=== PATIENT | male | born 1950 | race Caucasian/White ===

== ENCOUNTER → 2019-12-25 | Outpatient (CLI) | payer OTHER | END | disposition home or self-care (01) | LOC: RAH 10:27 | PROVIDERS: ATTEND Family Medicine | DX: I70.213 Atherosclerosis of native arteries of extremities with intermittent claudication, bilateral legs (principal) | CPT/HCPCS: 93925 ==

== ENCOUNTER → 2020-02-15 | Outpatient (CLI) | payer OTHER | END | disposition home or self-care (01) | LOC: SHCH 15:03 | PROVIDERS: ATTEND Internal Medicine Cardiovascular Disease | DX: I51.89 Other ill-defined heart diseases (principal) | CPT/HCPCS: 93306; 93356 ==

== ENCOUNTER → 2020-02-16 | Outpatient (CLI) | payer OTHER ==
[~2020-02-16] MED LIST: REGADENOSON 0.4 MG/5 ML PF SYG IVP SCH
== END | disposition home or self-care (01) ==
LOC: SHCH 08:20
PROVIDERS: ATTEND Internal Medicine Cardiovascular Disease
DX: I20.9 Angina pectoris, unspecified (principal)
CPT/HCPCS: 78452; 93017; 96374; A9500 ×2; J2785

== ENCOUNTER → 2020-06-01 | Outpatient (CLI) | payer OTHER | END | disposition home or self-care (01) | LOC: RAH 13:49 | PROVIDERS: ATTEND Family Medicine | DX: R10.31 Right lower quadrant pain (principal); N18.32 Chronic kidney disease, stage 3b; R59.0 Localized enlarged lymph nodes | CPT/HCPCS: 76770; 76882 ==

== ENCOUNTER → 2020-08-19 | Outpatient (CLI) | payer OTHER | END | disposition home or self-care (01) | LOC: RAH 10:00 | PROVIDERS: ATTEND Internal Medicine Cardiovascular Disease | DX: I26.99 Other pulmonary embolism without acute cor pulmonale (principal); Z95.1 Presence of aortocoronary bypass graft | CPT/HCPCS: 71046; 78582; A9540; A9558 ==

== ENCOUNTER → 2020-10-07 | Outpatient (CLI) | payer OTHER | END | disposition home or self-care (01) | LOC: SHCH 16:21 | PROVIDERS: ATTEND Internal Medicine Cardiovascular Disease | DX: I07.1 Rheumatic tricuspid insufficiency (principal) | CPT/HCPCS: 93306 ==

== ENCOUNTER → 2022-07-10 | Outpatient (CLI) | payer OTHER | END | disposition home or self-care (01) | LOC: SHCH 08:24 | PROVIDERS: ATTEND Internal Medicine Cardiovascular Disease | DX: I87.2 Venous insufficiency (chronic) (peripheral) (principal); R60.0 Localized edema | CPT/HCPCS: 93970 ==

== ENCOUNTER → 2022-07-16 | Outpatient (CLI) | payer OTHER | END | disposition home or self-care (01) | LOC: RESP 08:42 | PROVIDERS: ATTEND Internal Medicine Cardiovascular Disease | DX: R06.02 Shortness of breath (principal); R06.09 Other forms of dyspnea; Z86.16 Personal history of COVID-19 | CPT/HCPCS: 94010 ==

== ENCOUNTER → 2022-09-28 | Outpatient (CLI) | payer OTHER | END | disposition home or self-care (01) | LOC: RAH 11:04 | PROVIDERS: ATTEND Family Medicine | DX: I12.9 Hypertensive chronic kidney disease with stage 1 through stage 4 chronic kidney disease, or unspecified chronic kidney disease (principal); N18.4 Chronic kidney disease, stage 4 (severe); I70.0 Atherosclerosis of aorta; M47.815 Spondylosis without myelopathy or radiculopathy, thoracolumbar region | CPT/HCPCS: 71046 ==

== ENCOUNTER 2022-10-17 06:49 | Day surgery (SDC) | payer OTHER ==
[2022-10-11 11:23] LABS: BASOPHILS % (AUTO) 0.3 % (0.0-5.0); EOSINOPHILS % (AUTO) 1.9 % (0.0-8.0); HEMATOCRIT 36.2 % (42-54); LYMPHOCYTES % (AUTO) 32.7 % (21.0-51.0); MEAN CORPUSCULAR HEMOGLOBIN 32.3 pg (27.0-33.0); MONOCYTES % (AUTO) 9.4 % (3.0-13.0); NEUTROPHILS % (AUTO) 55.1 % (40.0-77.0); PLATELET COUNT (AUTO) 128 K/uL (130-400); RED BLOOD CELL COUNT(AUTO) 3.81 MIL/uL (4.50-6.20); RED CELL DISTRIBUTION WIDTH 13.9 % (11.0-15.5); WHITE BLOOD COUNT (AUTO) 7.2 K/uL (4.8-10.8)
[2022-10-11 11:33] LABS: CREATININE 2.1 mg/dL (0.5-1.5); POTASSIUM 4.4 mmol/L (3.5-5.1)
[2022-10-11 11:44] VITALS: BP 139/76; PULSE 54; RESP 16
[2022-10-17] VITALS (18 sets, daily range): BP systolic 113–132; BP diastolic 68–82; PULSE 61–75; RESP 14–20
[~2022-10-17] VITALS: Ht 167.6 cm; Wt 89.5 kg
[~2022-10-17 06:49] MED LIST changes: +AEC81 PO; +ALLO100T PO; +BACL10TA PO; +CETI10TA57 PO; +CLON0.1T PO; +FOLI1TAB85 PO; +GLIP10TA9 PO; +HYDR-4153 PO; +HYDR25TA PO; +LISI40TA9 PO; +METF-446 PO; +METO25TA6 PO; +OMEP20CA12 PO; -REGADENOSON 0.4 MG/5 ML PF SYG IVP SCH; +ROSU40TA21 PO; +TRAM50TA4 PO
[2022-10-17] MEDS ORDERED: LACTATED RINGERS 1000ML 0 ML IV ONE (06:55)
[2022-10-17] MEDS ORDERED: CEFAZOLIN SODIUM 2 GM VIAL ONE (06:55)
[2022-10-17] MEDS ORDERED: 0.9%NACL 1000ML 1,000 ML IV ONE (07:01)
[2022-10-17] MEDS ORDERED: ROPIVACAINE 0.5% 5MG/ML 30ML IJ ONE (09:16)
[2022-10-17] MEDS ORDERED: KETAMINE 50MG/ML SYRINGE 50 MG/ML DISP.SYRIN ONE (09:16)
[2022-10-17] MEDS ORDERED: SUCCINYLCHOLINE CHLORIDE 20 MG/ML 10 ML VIAL ONE (09:21)
[2022-10-17] MEDS ORDERED: LIDOCAINE HCL 4% LTA SOL 4 ML VIAL ONE (09:22)
[2022-10-17] MEDS ORDERED: MIDAZOLAM HCL 1 MG/ML 2ML VIAL ONE (09:22)
[2022-10-17] MEDS ORDERED: ROCURONIUM 10MG/1ML SYR 10 MG/ML ML ONE (09:22)
[2022-10-17] MEDS ORDERED: PROPOFOL 10 MG/ML 20ML VIAL IV ONE (09:22)
[2022-10-17] MEDS ORDERED: LIDOCAINE PF 100MG/5ML (2%) SYRINGE 5ML ONE (09:22)
[2022-10-17] MEDS ORDERED: PHENYLEPHRINE HCL 10 MG/ML 1ML VIAL IV ONE (09:50)
[2022-10-17] MEDS ORDERED: 0.9%NACL 10ML VIAL ONE (09:50)
[2022-10-17] MEDS ORDERED: EPHEDRINE SULFATE 50 MG/ML AMPULE ONE (10:23)
[2022-10-17] MEDS ORDERED: NEOSTIGMINE 5MG/5ML SYR IV ONE (10:58)
[2022-10-17] MEDS ORDERED: GLYCOPYRROLATE 1 MG/5 ML SYRINGE ONE (10:58)
[2022-10-17] MEDS ORDERED: ONDANSETRON 4MG INJ ONE (11:10)
[2022-10-17] MEDS ORDERED: HYDROCODONE/ACETAMINOPHEN 10/325 MG TAB PO PRN (11:30)
== END 2022-10-17 13:30 | disposition home or self-care (01) ==
LOC: DAH 06:49
PROVIDERS: ATTEND Orthopaedic Surgery
DX: M75.122 Complete rotator cuff tear or rupture of left shoulder, not specified as traumatic (principal); Z20.822 Contact with and (suspected) exposure to COVID-19; M25.512 Pain in left shoulder; M66.812 Spontaneous rupture of other tendons, left shoulder; I10 Essential (primary) hypertension; K21.9 Gastro-esophageal reflux disease without esophagitis; E11.9 Type 2 diabetes mellitus without complications; E78.5 Hyperlipidemia, unspecified; E66.9 Obesity, unspecified; Z88.3 Allergy status to other anti-infective agents; Z98.890 Other specified postprocedural states; Z68.32 Body mass index [BMI] 32.0-32.9, adult; Z79.899 Other long term (current) drug therapy; Z79.84 Long term (current) use of oral hypoglycemic drugs; Z79.01 Long term (current) use of anticoagulants
CPT/HCPCS: 80048; 85025; 87426; 36415; 93005; 29827; 64415; 82948 ×2; A6260; A4663; A6207; J7120; A4565; J3490 ×3; J2710; J0330; J7030; J2001; J2250; J2704; J2405; J2795; J2371; J0690; A6206; A4649 ×2; C1713 ×3; C1769; A5120; A4215; A4223; A4222; A4221; A4600

== ENCOUNTER → 2023-10-15 | Outpatient (CLI) | payer OTHER ==
[~2023-10-15] MED LIST changes: -HYDR-4153 PO; +HYDR25TA67 PO; -ROSU40TA21 PO; +ROSU40TA70 PO
== END | disposition home or self-care (01) ==
LOC: RAH 12:14
PROVIDERS: ATTEND Family Medicine
DX: N18.4 Chronic kidney disease, stage 4 (severe) (principal); R80.9 Proteinuria, unspecified; R35.0 Frequency of micturition; R33.9 Retention of urine, unspecified
CPT/HCPCS: 76770

== ENCOUNTER → 2024-02-07 | Outpatient (CLI) | payer OTHER ==
[~2024-02-07] MED LIST changes: +GLIP10TA16 PO; -GLIP10TA9 PO; -ROSU40TA70 PO; +ROSU40TA88 PO
== END | disposition home or self-care (01) ==
LOC: RAH 12:14
PROVIDERS: ATTEND Internal Medicine Cardiovascular Disease
DX: G45.9 Transient cerebral ischemic attack, unspecified (principal)
CPT/HCPCS: 93306; A4216

== ENCOUNTER → 2024-02-12 | Outpatient (CLI) | payer OTHER ==
--- NOTE | 2024-02-12 08:53 | HMCIMG ---
CT HEAD/BRAIN W/O CONTRAST HISTORY: TIA COMPARISON: None TECHNIQUE: Multiple sequential axial images of the head were obtained from the base of the skull through vertex. Patient was not given contrast through intravenous route. FINDINGS: The ventricles and extraventricular CSF spaces are dilated consistent with cerebral atrophy. Nonspecific white matter changes seen. There is no midline shift, mass effect or herniation. No acute intracranial bleed is seen. Visualized portion of the paranasal sinuses are grossly within normal limits. IMPRESSION: 1. No acute intracranial bleed is seen. 2. Atrophy with white matter changes. CT was performed with one or more following dose reduction techniques: automated exposure control, adjustment of the mA and kv according to patient's size, or use of a iterative reconstruction technique.
== END | disposition home or self-care (01) ==
LOC: RAH 07:54
PROVIDERS: ATTEND Internal Medicine Cardiovascular Disease
DX: G31.89 Other specified degenerative diseases of nervous system (principal); G45.9 Transient cerebral ischemic attack, unspecified
CPT/HCPCS: 70450

== ENCOUNTER → 2024-03-31 | Outpatient (CLI) | payer OTHER ==
--- NOTE | 2024-04-01 07:58 | HMCSR ---
APPROVED REPORT Laterality: Bilateral Indications g45.9 Doppler Spectral Velocity Analysis PSV / EDVPSV / EDV ECA (R) 65 / cm/sECA (L) 71 / cm/s dICA (R) 22 / 11 cm/sdICA (L) 95 / 34 cm/s Marily (R) 34 / 10 cm/smICA (L) 167 / 55 cm/s pICA (R) 43 / 8 cm/spICA (L) 104 / 34 cm/s dCCA (R) 43 / 12 cm/sdCCA (L) 92 / 33 cm/s mCCA (R) 27 / 9 cm/smCCA (L) 74 / 26 cm/s pCCA (R) 33 / 9 cm/spCCA (L) 67 / 19 cm/s Vert (R) 44 / cm/sVert (L) 95 / cm/s Subl. (R) 83 / cm/sSubl. (L) 141 / cm/s ICA/CCA 1.00ICA/CCA 1.82 Technologist Impression Severe calcified plaque noted in the right carotids, causing calcific image drop out at proximal ICA. Right ICA velocities appear low with dampened waveforms distal to image drop out, suggestive of proxi mal obstruction. Bilateral vertebral arteries appear antegrade. Mild plaque noted in the left carotids, without hemodynamic significance. Conclusion As above. Conclusion As above.
== END | disposition home or self-care (01) ==
LOC: SHCH 07:43
PROVIDERS: ATTEND Internal Medicine Cardiovascular Disease
DX: I65.23 Occlusion and stenosis of bilateral carotid arteries (principal); G45.9 Transient cerebral ischemic attack, unspecified
CPT/HCPCS: 93880